=== PATIENT | female | born 2000 | race Caucasian/White ===

== ENCOUNTER 2020-11-16 21:01 | Inpatient (IN) ==
[2020-11-16] MEDS ORDERED: OXYTOCIN/LR 20 UNIT/1,000 ML BAG IV PRN (21:16)
[2020-11-16] MEDS ORDERED: ONDANSETRON 4 MG/2 ML VIAL IV PRN (21:16)
[2020-11-16 21:36] LABS: Basophils # 0.1 10*3/uL (0.0-0.2); Basophils % 0.5 % (0.0-0.8); Eosinophils # 0.1 10*3/uL (0.0-0.87); Eosinophils % 0.9 % (0.00-10.9); Hematocrit 33.4 VOL% (35.7-47.0); Hemoglobin 10.5 GM/DL (12.0-16.0); Immature Granulocytes % 1.9 %; Lymphocytes # 2.2 10*3/uL (1.4-4.0); Lymphocytes % 20.4 % (21.3-54.2); Mean Corpuscular HGB Conc 31.4 GM/DL (32-36); Mean Corpuscular Volume 84.8 FL (87-102); Mean Platelet Volume 10.2 FL (9.6-12.0); Monocytes % 11.3 % (1.7-12.7); Platelet Count 323 T/CUMM (130-400); Red Blood Count 3.94 MC/CUMM (3.8-5.5); Red Cell Distribution Width 16.3 % (9.3-17.3); White Blood Count 10.6 T/CUMM (4-12)
[2020-11-16 21:56] LABS: Albumin 2.9 G/DL (3.4-5.0); Bilirubin,Total 0.4 MG/DL (0.2-1.0); Calcium 8.5 MG/DL (8.5-10.1); Osmolality,Calculated 276.4 MOS/KG (273-304); Potassium 3.9 MMOL/L (3.5-5.1); Total Protein 7.4 G/DL (6.4-8.2)
[2020-11-17] MEDS: BUTORPHANOL 2 MG/ML VIAL IV PRN ×3 (01:22→07:14)
[2020-11-17] MEDS: LACTATED RINGERS 1,000 ML IV SCH ×2 (04:24→08:01)
[2020-11-17] MEDS ORDERED: diphenhydrAMINE 50 MG/1 ML VIAL IV PRN ×2 (06:04)
[2020-11-17] MEDS ORDERED: ePHEDrine 50 MG/ML VIAL IV PRN (06:04)
[2020-11-17] MEDS ORDERED: NALOXONE 0.4 MG/ML VIAL IV PRN (06:04)
[2020-11-17] MEDS ORDERED: hydrOXYzine HCL 25 MG/1 ML VIAL IM PRN (06:04)
[2020-11-17] MEDS ORDERED: fentaNYL 2 MCG/ROPIV 0.2% EPID 100 ML EPIDURAL SCH (06:30)
[2020-11-17] MEDS ORDERED: CITRIC ACID/SODIUM CITRATE 30 ML UDCUP ONE (07:03)
[2020-11-17] MEDS ORDERED: FAMOTIDINE 20 MG/2 ML VIAL IV ONE ×2 (07:03→07:07)
[2020-11-17] MEDS ORDERED: CITRIC ACID/SODIUM CITRATE 30 ML UDCUP PO ONE (07:07)
[2020-11-17] MEDS ORDERED: miSOPROStoL 200 MCG TABLET ONE (08:43)
[2020-11-17] MEDS ORDERED: METHYLERGONOVINE 0.2 MG/1 ML AMP ONE (08:44)
[2020-11-17] MEDS ORDERED: CARBOPROST TROMETHAMINE 250 MCG/ML AMP IM ONE (08:44)
[2020-11-17 09:52] LABS: Cord Arterial Blood HCO3 18.5 MMOL/L
[2020-11-17 09:56] LABS: Cord Venous Blood HCO3 20.4 MMOL/L; Cord Venous Blood PCO2 48.7 MMHG; Cord Venous Blood PO2 24.4
[2020-11-17 10:08] LABS: Bacteria,Urine Occasional /HPF (Few); Bilirubin,Urine Negative (Negative); Blood, Urine Negative (Negative); Glucose,Urine (UA) Negative (Negative); Ketones,Urine 5 mg/dL (Negative); Mucus,Urine Few /LPF (Occasional); Nitrite,Urine Negative (Negative); Protein,Urine Negative; RBC,Urine 1 /HPF (0-4); Squamous Epithelial Cell,Urine Occasional /HPF (0-10); Urine Appearance CLEAR (Clear); Urine Color Yellow (Yellow); Urine Urobilinogen < 2.0 EU/DL (0.2-1.0)
[2020-11-17] MEDS ORDERED: oxyCODONE/ACETAMINOPHEN 5-325 MG TABLET PO PRN ×2 (19:40)
[2020-11-17] MEDS: DOCUSATE SODIUM 100 MG CAPSULE PO SCH (20:56)
[2020-11-17] MEDS: IBUPROFEN 800 MG TABLET PO PRN (22:12)
[2020-11-18 05:48] LABS: Basophils # 0.1 10*3/uL (0.0-0.2); Basophils % 0.5 % (0.0-0.8); Eosinophils # 0.1 10*3/uL (0.0-0.87); Eosinophils % 0.6 % (0.00-10.9); Hematocrit 31.1 VOL% (35.7-47.0); Hemoglobin 9.6 GM/DL (12.0-16.0); Immature Granulocytes % 1.1 %; Immature Granulocytes Absolute 0.16 #; Lymphocytes % 13.9 % (21.3-54.2); Mean Corpuscular HGB Conc 30.9 GM/DL (32-36); Mean Corpuscular Volume 86.1 FL (87-102); Mean Platelet Volume 11.1 FL (9.6-12.0); Monocytes % 9.6 % (1.7-12.7); Neutrophils % 74.3 % (38.7-73.9); Platelet Count 304 T/CUMM (130-400); Red Blood Count 3.61 MC/CUMM (3.8-5.5); Red Cell Distribution Width 16.7 % (9.3-17.3); White Blood Count 14.5 T/CUMM (4-12)
[2020-11-18] MEDS: IBUPROFEN 800 MG TABLET PO PRN ×3 (06:12→20:43)
[2020-11-18] MEDS: DOCUSATE SODIUM 100 MG CAPSULE PO SCH ×2 (09:09→20:43)
[2020-11-18] MEDS ORDERED: RHO(D) IMMUNE GLOBULIN 300 MCG SYRINGE IM ONE (10:00)
[2020-11-19 08:18] VITALS: BP 100/51
[2020-11-19] MEDS: DOCUSATE SODIUM 100 MG CAPSULE PO SCH (09:00)
== END 2020-11-19 14:50 | disposition home or self-care (01) | DRG 807 ==
LOC: N.LDOUT 21:01 → N.LD 21:04 → N.OB 11-17 11:33
PROVIDERS: ADMIT Specialist; ATTEND Specialist